=== PATIENT | male | born 1950 | race African-American/Black ===

== ENCOUNTER → 2019-05-25 | Day surgery (SDC) | payer MEDICARE, OTHER ==
[~2019-05-25] MED LIST: AMLO10TA8 PO; ASPI-630 PO; DORZ10DR7 OS; GABA600T7 PO; HYDROmorphone 2 MG/ML VIAL IV PRN; INSU100I13 SQ; IV RINGERS,LACTATED 1000ML 1,000 ML IV SCH; LATA2.5D3 OP; LIDOCAINE 1% PF 2 ML VIAL. ID PRN; LIDOCAINE 2% PF 5 ML VIAL. ONE; LISI-130 PO; MORPHINE SULFATE 2 MG/ML VIAL. IV PRN; ONDANSETRON PF 4 MG/2 ML VIAL. IV PRN; PROCHLORPERAZINE 10 MG/2 ML VIAL. IV PRN; PROPOFOL 20 ML IV ONE; SITA1TBM4 PO; fentaNYL PF VIAL 100 MCG/2 ML VIAL IV PRN
[2019-05-25 09:15] VITALS: BP 123/67
--- NOTE | 2019-05-26 15:07 | PATHOLOGY ---
[facility] Accession Number: [id number] . 01 Material submitted: . cecum - CECAL POLYP . 01 Clinical history: . CRCS . 02 Diagnosis: "Cecal polyp", biopsy: - Tubular adenoma; no high-grade dysplasia. (CLW:[facility]; 05/26/2019) QMS 05/26/2019 0954 Local . 02 Electronically signed: . Ree Caceres MD, Pathologist NPI- [id number] . 01 Gross description: . The specimen is received in formalin, labeled "Alber Barks[place], cecal polyp", is an irregular fragment of aldana soft tissue measuring 0.2 cm in aggregate. Entirely submitted in A1. ([facility]; 05/25/2019) [facility] 05/26/2019 0953 Local . 02 Pathologist provided ICD-10: D12.0 . 02 CPT . 167456 Specimen Comment: A courtesy copy of this report has been sent to Specimen Comment: [phone], . Specimen Comment: Report sent to / DR MAC Performed at: 01 [facility] [address], [place] [id number] MD Aaron Verma MD Phone: [phone] Performed at: 02 [facility] [address], [place] [id number] MD Isaiah Pedraza MD Phone: [phone]
== END ==
LOC: ENDOS 07:29
PROVIDERS: ATTEND Internal Medicine Gastroenterology
DX: Z12.11 Encounter for screening for malignant neoplasm of colon (principal); D12.0 Benign neoplasm of cecum; K57.30 Diverticulosis of large intestine without perforation or abscess without bleeding; K64.0 First degree hemorrhoids; F32.9 Major depressive disorder, single episode, unspecified; E11.39 Type 2 diabetes mellitus with other diabetic ophthalmic complication; H42 Glaucoma in diseases classified elsewhere; E11.22 Type 2 diabetes mellitus with diabetic chronic kidney disease; I12.9 Hypertensive chronic kidney disease with stage 1 through stage 4 chronic kidney disease, or unspecified chronic kidney disease; N18.9 Chronic kidney disease, unspecified; E78.00 Pure hypercholesterolemia, unspecified; G47.30 Sleep apnea, unspecified; F15.90 Other stimulant use, unspecified, uncomplicated; Z79.82 Long term (current) use of aspirin; Z98.890 Other specified postprocedural states; Z86.010 Personal history of colon polyps; Z87.39 Personal history of other diseases of the musculoskeletal system and connective tissue; Z79.84 Long term (current) use of oral hypoglycemic drugs; Z98.49 Cataract extraction status, unspecified eye; Z96.1 Presence of intraocular lens
CPT/HCPCS: 45380; 88305; J2001; J2704

== ENCOUNTER → 2020-01-31 | Outpatient (CLI) | payer MEDICARE, OTHER ==
[2019-05-25 09:15] VITALS: BP 123/67
[~2020-01-31] MED LIST changes: -HYDROmorphone 2 MG/ML VIAL IV PRN; -IV RINGERS,LACTATED 1000ML 1,000 ML IV SCH; -LIDOCAINE 1% PF 2 ML VIAL. ID PRN; -LIDOCAINE 2% PF 5 ML VIAL. ONE; -MORPHINE SULFATE 2 MG/ML VIAL. IV PRN; -ONDANSETRON PF 4 MG/2 ML VIAL. IV PRN; -PROCHLORPERAZINE 10 MG/2 ML VIAL. IV PRN; -PROPOFOL 20 ML IV ONE; -fentaNYL PF VIAL 100 MCG/2 ML VIAL IV PRN
--- NOTE | 2020-01-31 16:06 | KCIC ---
MRI Lumbar Spine without contrast History: Right leg pain and weakness, low back pain, symptoms about 6 months Technique: Multiplanar, multi sequential noncontrast MR imaging was performed of the lumbar spine. Comparison: None Findings: Lumbar vertebral body stature is maintained. There is negligible anterior spondylolisthesis at L4-5. There is moderate to severe degenerative disc disease L5-S1 and to a lesser degree at L4-5, mild to moderate degenerative disc disease at L2-3 and minimally at L3-4. Conus terminates at L1-L2. There is trace variable endplate edema at L3-4 through L5-S1 likely reactive/degenerative in etiology. There is nonspecific edema of the posterior subcutaneous fat of the lower back. There is 2.9 cm T2 hyperintense lesion of the visualized left kidney, statistically most likely a cyst. L1-L2: Spinal canal and neural foramina are adequate. L2-L3: There is disc osteophyte complex and superimposed protrusion about 3 mm AP with associated annular tear. There is mild prominence of posterior epidural fat centrally. There is mild buckling of the ligamentum flavum and mild to moderate facet degenerative change. There is mild lateral recess stenosis bilaterally greater on the right. There is very mild narrowing of the right neural foramen, left neural foramen adequate. L3-L4: There is kmlx-xi-gdbambgw buckling of the ligamentum flavum and facet degenerative change. There is broad protrusion about 3 to 4 mm AP greatest centrally. There is posterior annular tear. There is cdaf-ot-vppepafv narrowing of the far right lateral recess, mild narrowing of the central canal. Neural foramina are overall adequate. L4-L5: There is disc osteophyte complex with superimposed broad posterior bulge about 4 mm AP. There is prominence of posterior epidural fat centrally. There is moderate to severe buckling of the ligamentum flavum and moderate facet hypertrophic change. Combination of findings results in fairly severe attenuation of the thecal sac with near complete effacement of subarachnoid space, lateral recess stenosis bilaterally. Posterior epidural lipomatosis contributes to more central attenuation of the thecal sac. There is moderate right and cywx-ym-eorsqvbh left neural foramina compromise. Bulge is near the undersurfaces of the exiting L4 nerve roots greater on the right extending to the proximal extraforaminal region on the right. L5-S1: There is moderate bilateral facet hypertrophic change and qewu-be-upcjghvo buckling of the ligamentum flavum. There is broad protrusion/mostly contained extrusion somewhat greater in the left lateral recess about 5 to 6 mm AP. There is extent very slightly below the intervertebral disc space greater in the left lateral recess. There is moderate to severe narrowing of the far left lateral recess with contact of the descending left S1 nerve root, minimal narrowing of the far right lateral recess. There is severe narrowing of the left neural foramen in part by disc osteophyte complex in combination with facet degenerative change. There is knnh-bv-uppejvwk narrowing of the right neural foramen. Impression: 1. There is left lateral recess stenosis at L5-S1 by protrusion/extrusion with impingement of the descending left S1 nerve root. There is fairly severe attenuation of the thecal sac at L4-5 with lateral recess stenosis bilaterally, more central attenuation of the thecal sac from posterior epidural lipomatosis. There is also ulcw-bo-yptdursb right lateral recess stenosis at L3-4 in part by protrusion and mild lateral recess stenosis greater on the right at L2-3. 2. There is multilevel lumbar degenerative disc disease greatest L5-S1. 3. There is neural foramina compromise as stated greatest on the left at L5-S1, lesser degree of narrowing bilaterally at L4-5 and on the right at L5-S1. 4. There is multilevel lumbar facet degenerative change, negligible anterior spondylolisthesis L4-5. There is mild lumbar levoscoliosis. 5. Kidneys are not fully evaluated, T2 hyperintense lesion of the visualized inferior left kidney statistically more likely a cyst. Electronically signed by: Serge Ruiz MD (01/31/2020 4:02 PM) [id number]
== END ==
LOC: KCIC MRI 14:48
PROVIDERS: ATTEND Family Medicine
DX: M51.37 Other intervertebral disc degeneration, lumbosacral region (principal); M48.07 Spinal stenosis, lumbosacral region; M51.26 Other intervertebral disc displacement, lumbar region; M25.78 Osteophyte, vertebrae
CPT/HCPCS: 72148

== ENCOUNTER → 2020-03-09 | Outpatient (CLI) | payer MEDICARE, OTHER ==
[2019-05-25 09:15] VITALS: BP 123/67
--- NOTE | 2020-03-09 16:36 | KCIC ---
EXAM: Cervical spine MRI without contrast. HISTORY: Right leg weakness. Unsteady gait. TECHNIQUE: Multiplanar, multisequence magnetic resonance imaging of the cervical spine was performed without contrast. COMPARISON: None. FINDINGS: There is minimal anterolisthesis of C3 on C4 and T1 on T2. There is multilevel endplate remodeling. There is no fracture or suspicious osseous lesion. No cervical spinal cord lesion is seen. There is a small focus of encephalomalacia likely due to chronic infarction within the ciro. At C2-C3, there is a disc bulge and endplate remodeling. There is mild bilateral facet arthropathy. There is no stenosis. At C3-C4, there is a disc bulge and endplate remodeling. There is moderate bilateral facet arthropathy. There is uncovertebral arthropathy. There is mild bilateral foraminal stenosis. At C4-C5, there is a disc bulge and endplate remodeling. There is moderate bilateral facet arthropathy. There is uncovertebral arthropathy. There is mild bilateral foraminal stenosis. At C5-C6, there is a disc bulge and endplate remodeling. There is mild bilateral facet arthropathy. There is uncovertebral arthropathy. There is mild right foraminal stenosis. At C6-C7, there are bilateral posterior lateral disc osteophyte complexes superimposed on a disc bulge. There is mild bilateral facet arthropathy. There is uncovertebral arthropathy. There is moderate right and mild left foraminal stenosis. IMPRESSION: 1. Multilevel degenerative change involving the cervical spine, resulting in foraminal stenosis at the aforementioned levels. No cervical spinal cord lesion is seen. 2. 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 This can be better assessed with a brain MRI. Electronically signed by: Ursula Braun MD (03/09/2020 4:33 PM) [id number]
== END ==
LOC: KCIC MRI 14:22
PROVIDERS: ATTEND Neurological Surgery
DX: M48.02 Spinal stenosis, cervical region (principal); M25.78 Osteophyte, vertebrae; M47.812 Spondylosis without myelopathy or radiculopathy, cervical region
CPT/HCPCS: 72141

== ENCOUNTER → 2020-04-23 | Outpatient (CLI) | payer MEDICARE, OTHER ==
[2019-05-25 09:15] VITALS: BP 123/67
[~2020-04-23] MED LIST changes: +GADOTERATE 7.5 MMOL/15ML VIAL. IVP ONE
--- NOTE | 2020-04-23 13:51 | KCIC ---
MRI of the Brain without and with Contrast 04/23/2020 Clinical History: Right leg weakness. Unsteady gait. Technique: Unenhanced T1-weighted sagittal and axial, T2-weighted axial and coronal and FLAIR, gradient echo and diffusion-weighted axial images of the brain were obtained. After the intravenous administration of 20 cc of Clariscan, enhanced T1-weighted axial, sagittal and coronal images of the brain were obtained. Findings: Comparison is made to the patient's CT scan of the head dated 07/19/2018. Some of the images are degraded by patient motion. There is generalized parenchymal atrophy. Patchy, confluent and multiple focal areas of abnormally increased signal intensity are seen within the periventricular and subcortical white matter of both cerebral hemispheres along with the ciro on the FLAIR and T2-weighted images consistent with areas of extensive small vessel ischemic disease. Old areas of infarction are seen involving both cerebellar hemispheres. These measure 3 to 7 mm in size. A 6 mm old area of lacunar infarction is seen involving the left ciro. Several old areas of lacunar infarction are seen involving the left and right thalamus. These measure 2 to 8 mm in size. Old areas of lacunar infarction are seen within the centrum semiovale bilaterally which measure 3 mm to 1.2 cm in size. A focal oval-shaped area of restricted diffusion is seen involving the periventricular white matter of the left frontal lobe. This measures 6 mm in greatest diameter. This is consistent with an area of acute ischemia/infarction. There is no significant surrounding edema or associated mass effect. No additional acute parenchymal abnormality is seen. No extra-axial fluid collection is noted. No area of abnormal contrast enhancement is seen. Mild mucosal thickening is seen scattered throughout the paranasal sinuses. There are small bilateral mastoid effusions. Normal flow voids are seen within the major vascular structures surrounding the brain parenchyma. Impression: 6 mm area of acute ischemia/infarction is seen involving the white matter of the left frontal lobe. There is no surrounding edema or associated mass effect. This finding was discussed with Dr. Leon. Electronically signed by: Joel Goins MD (04/23/2020 1:48 PM) [id number]
== END | disposition home or self-care (01) ==
LOC: KCIC MRI 10:09
PROVIDERS: ATTEND Neurological Surgery
DX: I63.9 Cerebral infarction, unspecified (principal); G93.6 Cerebral edema; Z86.73 Personal history of transient ischemic attack (TIA), and cerebral infarction without residual deficits
CPT/HCPCS: 70553; 82565; A9575

== ENCOUNTER → 2020-06-18 | Outpatient (CLI) | payer MEDICARE, OTHER ==
[2019-05-25 09:15] VITALS: BP 123/67
[~2020-06-18] MED LIST changes: +AMLO-187 PO; -AMLO10TA8 PO; -GADOTERATE 7.5 MMOL/15ML VIAL. IVP ONE
--- NOTE | 2020-06-18 16:42 | RAD ---
Exam : Carotid Duplex with Grayscale Ultrasound and Spectral and Color Doppler Analysis 06/18/2020 4:38 PM Clinical Indications: Reason: HX OF MULTIPLE STROKES / Spl. Instructions: / History: Comparison study: None available. PQRS Compliance Statement - Stenosis calculations for CT, MR and conventional angiography are based upon measurement of the distal ICA diameter in accordance with the NASCET methodology. Stenosis calculations for carotid ultrasound studies are derived from validated velocity criteria which are known to correlate with the NASCET methodology. Findings: The common, internal and external carotid arteries were examined by grayscale, color and spectral Doppler ultrasound. There is a chronic finding most prominently seen in the bilateral carotid bulbs. No high-grade visual narrowing is identified color Doppler imaging. Flow in the vertebral arteries is antegrade bilaterally. The following are the velocities and ratios in the carotid arteries on both sides: RIGHT ICA PV: 61cm/sec RIGHT CCA PV: 85cm/sec RIGHT ICA ED: 15cm/sec RIGHT IC/CCPV: Less than 2 RIGHT VERTEBRAL: antegrade flow LEFT ICA PV: 75cm/sec LEFT CCA PV: 93cm/sec LEFT ICA ED: 23cm/sec LEFT IC/CCPV: Less than 2 LEFT VERTEBRAL: antegrade flow <50% ICA Stenosis: PSV < 125cm/s (EDV < 40cm/s; SVR < 2.0) 50-69% ICA Stenosis: PSV < 125-229cm/s (EDV 40-99cm/s; SVR 2.0-3.9) >70% ICA Stenosis: PSV > 230cm/s (EDV >100cm/s; SVR >4.0) Impression: Mild atherosclerotic vascular disease predominantly involving the bilateral carotid bulbs with less than 50% stenosis of the bilateral internal carotid arteries by ultrasound criterion Electronically signed by: Jaden Mata MD (06/18/2020 4:39 PM) [id number]
== END ==
LOC: US 14:51
PROVIDERS: ATTEND Nurse Practitioner Family
DX: I63.81 Other cerebral infarction due to occlusion or stenosis of small artery (principal); Z86.73 Personal history of transient ischemic attack (TIA), and cerebral infarction without residual deficits
CPT/HCPCS: 93880

== ENCOUNTER → 2021-03-22 | Outpatient (CLI) | payer MEDICARE, OTHER ==
[2019-05-25 09:15] VITALS: BP 123/67
--- NOTE | 2021-03-22 13:17 | CARD ---
MR#: [id number] Date of Study: 03/22/2021 Ordering Physician: TRAVON WATERMAN, Referring Physician: TRAVON WATERMAN, Tech: Enrike Moser [facility] APPROVED REPORT EXAM: Two-dimensional and M-mode echocardiogram with Doppler and color Doppler. Other Information Quality : AverageHR: 59bpm Rhythm : NSR INDICATION CVA/TIA RISK FACTORS Hypertension 2D DIMENSIONS Left Atrium(2D)5.0 (1.6-4.0cm)IVSd1.7 (0.7-1.1cm) Aortic Root(2D)3.1 (2.0-3.7cm)LVDd4.0 (3.9-5.9cm) LVOT Diameter2.2 (1.8-2.4cm)PWd1.6 (0.7-1.1cm) LVDs2.0 (2.5-4.0cm)FS (%) 50.0 % SV57.7 ml Aortic Valve AoV Peak Boni.100.8cm/sAoV VTI23.9cm AO Peak GR.4.1mmHgLVOT Peak Boni.101.8cm/s AO Mean GR.2mmHgAVA (VMAX)3.76cm2 Mitral Valve MV E Hofsgnfv87.8cm/sMV E Peak Gr.3mmHg MV DECEL [id number] A Laabplwq04.8cm/s MV E Mean Gr.1mmHgE/A Ratio1.1 Pulmonary Valve PV Peak Mgttyicl50.3cm/s Tricuspid Valve TR P. Lmwsdwub180gz/sTR Peak Gr.26mmHg Pulmonary Vein S1 Wdgzrawc79.8cm/sD2 Ovbbhfoc61.3cm/s LEFT VENTRICLE The left ventricle is normal size. There is mild to moderate concentric left ventricular hypertrophy. Additional proximal septal thickening is noted. The left ventricular systolic function is normal an d the ejection fraction is within normal range. LV ejection fraction is 55 to 60%. There is normal LV segmental wall motion. Tissue Doppler imaging reveals abnormal left ventricular diastolic dysfunctio n. No left ventricle thrombus noted on this study. There is no ventricular septal defect visualized. There is no left ventricular aneurysm. There is no mass noted in the left ventricle. RIGHT VENTRICLE The right ventricle is normal size. There is normal right ventricular wall thickness. The right ventr icular systolic function is normal. ATRIA The left atrium is mild to moderately dilated. The right atrium size is normal. The interatrial septu m is intact with no evidence for an atrial septal defect or patent foramen ovale as noted on 2-D or D oppler imaging. AORTIC VALVE The aortic valve is mildly sclerotic. Doppler and Color Flow revealed trace aortic regurgitation. The re is no significant aortic valvular stenosis. There is no aortic valvular vegetation. MITRAL VALVE The mitral valve is normal in structure and function. There is no evidence of mitral valve prolapse. There is no mitral valve stenosis. Doppler and Color-flow revealed mild mitral regurgitation. TRICUSPID VALVE The tricuspid valve is normal in structure and function. Doppler and Color Flow revealed mild tricusp id regurgitation. There is no tricuspid valve prolapse or vegetation. There is no tricuspid valve cici nosis. PULMONIC VALVE The pulmonary valve is normal in structure and function. Doppler and Color Flow revealed no pulmonic valvular regurgitation. There is no pulmonic valvular stenosis. GREAT VESSELS The aortic root is normal in size. The ascending aorta is normal in size. The pulmonary artery is nor mal. The IVC is normal in size and collapses >50% with inspiration. PERICARDIAL EFFUSION There is no pleural effusion. There is no evidence of significant pericardial effusion. Critical Notification Critical Value: No <Conclusion> The left ventricle is normal size. The left ventricular systolic function is normal and the ejection fraction is within normal range. LV ejection fraction is 55 to 60%. There is mild to moderate concentric left ventricular hypertrophy. Additional proximal septal thickening is noted. Doppler and Color Flow revealed trace aortic regurgitation. There is no significant aortic valvular stenosis. Doppler and Color-flow revealed mild mitral regurgitation. Doppler and Color Flow revealed mild tricuspid regurgitation. Signed by : Fahad Valencia MD Electronically Approved : 03/22/2021 13:16:33
== END ==
LOC: ECHO 08:48
PROVIDERS: ATTEND Internal Medicine Cardiovascular Disease
DX: I08.3 Combined rheumatic disorders of mitral, aortic and tricuspid valves (principal); I10 Essential (primary) hypertension; I63.9 Cerebral infarction, unspecified
CPT/HCPCS: 93306

== ENCOUNTER 2021-11-18 12:53 | Inpatient (IN) | payer OTHER, MEDICARE ==
[~2021-11-18] VITALS: Ht 175.3 cm; Wt 98.5 kg
[2021-11-18] VITALS (8 sets, daily range): BP systolic 145–160; BP diastolic 69–95
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
[2021-11-18 13:51] LABS: BACTERIA,URINE 0 /HPF (0-FEW)
[2021-11-18 13:55] LABS: BASO # 0.1 x10^3/uL (0.0-0.2); BASO % 1 % (0-3); EOS % 0 % (0-3); HEMATOCRIT 37.9 % (39.0-53.0); HEMOGLOBIN 12.6 g/dL (13.0-17.5); LYMPH # 1.2 x10^3/uL (1.0-4.8); LYMPH % 16 % (24-48); MEAN CORPUSCULAR HEMOGLOBIN 29 pg (25-35); MEAN CORPUSCULAR HGB CONC 33 g/dL (31-37); MEAN CORPUSCULAR VOLUME 86 fL (79-100); MONO # 0.5 x10^3/uL (0.0-1.1); MONO % 6 % (0-9); NEUT # 5.9 x10^3/uL (1.8-7.7); NEUT % 77 % (31-73); PLATELET COUNT 201 x10^3/uL (140-400); RED BLOOD COUNT 4.39 x10^6/uL (4.30-5.70); RED CELL DISTRIBUTION WIDTH 13.5 % (11.5-14.5); WHITE BLOOD COUNT 7.7 x10^3/uL (4.0-11.0)
--- NOTE | 2021-11-18 13:57 | RAD ---
XR CHEST 1V History: Altered mental status Comparison: 04/17/2019 Technique: Portable AP radiograph of the chest. Findings: The lungs are hypoinflated. There are linear bilateral lower lung opacities. No pleural effusion or p neumothorax. The cardiac silhouette is obscured by low lung volumes. Pulmonary vasculature is crowded . Osseous structures and soft tissues are unremarkable. Impression: 1. Low lung volumes with linear opacities likely atelectasis and bronchovascular crowding. Electronically signed by: Judah Pratt MD (11/18/2021 1:55 PM) [id number]
[2021-11-18 14:00] LABS: CALCIUM 9.5 mg/dL (8.5-10.1); CREATININE 2.5 mg/dL (0.7-1.3); GFR 31.1; POTASSIUM 4.1 mmol/L (3.5-5.1)
[2021-11-18 14:07] LABS: ALBUMIN 3.9 g/dL (3.4-5.0); ALBUMIN/GLOBULIN RATIO 1.1 (1.0-1.7); TOTAL BILIRUBIN 0.4 mg/dL (0.2-1.0); TOTAL PROTEIN 7.4 g/dL (6.4-8.2)
--- NOTE | 2021-11-18 14:12 | RAD ---
CT HEAD INDICATION: Altered mental status COMPARISON: None Available. Exposure: One or more of the following individualized dose reduction techniques were utilized for thi s examination: 1. Automated exposure control 2. Adjustment of the mA and/or kV according to patient size 3. Use of iterative reconstruction technique TECHNIQUE: 5 mm contiguous axial images were obtained from the skull base to the vertex in both bone and soft tissue algorithm. FINDINGS: There is hyperdensity identified along the extra-axial region likely in the subdural region of the le ft frontal lobe measuring 7 mm in thickness likely acute subdural bleed. No mass effect or midline shift. Ventricular size is appropriate. Basal cisterns are patent. No fractures identified.Mcleod-white differentiation is preserved.Globes and orbits are within normal l imits. Paranasal sinuses and mastoid air cells are clear. IMPRESSION: There is hyperdensity identified along the extra-axial region likely in the subdural region of the le ft frontal lobe measuring 7 mm in thickness likely acute subdural bleed. FOR INTERNAL CODING PURPOSES Critical result: Findings discussed with BASHIR CARDOZO DO at 11/18/2021 2:09 PM. RESULT CODE: (C) Electronically signed by: Isma Jarrett MD (11/18/2021 2:09 PM) [id number]
[2021-11-18 14:31] LABS: PROTHROMBIN TIME PATIENT 14.4 SEC (11.7-14.0)
[2021-11-18] MEDS ORDERED: HYDROcodone/APAP 5/325MG 1 TAB TABLET PO PRN (15:15)
[2021-11-18] MEDS ORDERED: IV DEXTROSE 5% 250 ML BAG. IV PRN (15:15)
[2021-11-18] MEDS ORDERED: ONDANSETRON PF 4 MG/2 ML VIAL. IVP PRN (15:15)
[2021-11-18] MEDS ORDERED: 0.9 % SODIUM CHLORIDE 10 ML DISP.SYRIN. IV PRN (15:15)
[2021-11-18] MEDS ORDERED: DEXTROSE 50% 25 GM / 50ML DISP.SYRIN. IV PRN (15:15)
[2021-11-18] MEDS ORDERED: hydrALAZINE 20 MG/ML VIAL. IVP PRN (15:15)
[2021-11-18] MEDS ORDERED: ACETAMINOPHEN 325 MG TABLET. PO PRN (15:15)
[2021-11-18] MEDS ORDERED: ZOLPIDEM 5 MG TABLET. PO PRN (15:15)
[2021-11-18] MEDS ORDERED: MAGNESIUM HYDROXIDE 2,400 MG/30 ML ORAL.SUSP. PO PRN (15:15)
[2021-11-18] MEDS ORDERED: CALCIUM CARBONATE 500 MG TAB.CHEW PO PRN (15:15)
[2021-11-18] MEDS ORDERED: MAG HYDROX/ALUMINUM HYD/SIMETH 30 ML ORAL.SUSP PO PRN (15:15)
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
[2021-11-18] MEDS ORDERED: IV NORMAL SALINE 500ML BAG 500 ML IV ONE (15:45)
[2021-11-18] MEDS ORDERED: FOLI0.8C PO (18:34)
[2021-11-18] MEDS ORDERED: APIX5TAB PO (18:34)
[2021-11-18] MEDS ORDERED: METO-239 PO (18:34)
[2021-11-18] MEDS ORDERED: ATOR40TA59 PO (18:34)
[2021-11-18] MEDS ORDERED: SERT-267 PO (18:34)
[2021-11-18] MEDS ORDERED: METF100010 PO (18:34)
[2021-11-18] MEDS ORDERED: OXYB10TA26 PO (18:34)
[2021-11-18] MEDS ORDERED: TAMS0.4C97 PO (18:34)
[2021-11-18] MEDS ORDERED: MECO10005 PO (18:34)
[2021-11-18] MEDS: INSULIN LISPRO 300 UNITS/3 ML VIAL. SQ SCH (18:43)
--- NOTE | 2021-11-18 18:57 | EKG ---
[facility] [address] [place] [address] Test Date: 2021-11-18 Test Time: 14:12:01 Pat Name: EDOUARD ESTRELLA Department: Room: 112 1 Gender: M Sourcing Specialist: : 1950 Requested By: BASHIR CARDOZO Order Number: [id number] Reading MD: Nitin Short Measurements Intervals [place] Rate: 88 P: 74 LA: 176 QRS: -13 QRSD: 82 T: 22 QT: 334 QTc: 407 Interpretive Statements SINUS RHYTHM LEFTWARD AXIS Electronically Signed On 11-22-2021 13:49:50 CDT by Nitin Short
[2021-11-18] MEDS: TIMOLOL 0.5% OPHTH SOLUTION 5ML BOTTLE. OS SCH (20:43)
[2021-11-18] MEDS: DORZOLAMIDE 2% OPHTH SOLUTION 10ML BOTTLE. OS SCH (20:43)
[2021-11-18] MEDS: GABAPENTIN 300 MG CAPSULE. PO SCH (20:43)
[2021-11-18] MEDS ORDERED: NON FORMULARY ITEM (Dorzolamide Hcl/Timolol Maleat (Dorzolamide-Timolol Eye Drops) 1 DROP) OS SCH (21:00)
[2021-11-18] MEDS ORDERED: INSULIN GLARGINE SYRINGE. SQ SCH ×2 (21:00)
[2021-11-19] VITALS (14 sets, daily range): BP systolic 122–159; BP diastolic 66–86
[2021-11-19 06:37] LABS: CALCIUM 9.1 mg/dL (8.5-10.1); CREATININE 2.2 mg/dL (0.7-1.3); GFR 36.1; POTASSIUM 3.5 mmol/L (3.5-5.1)
[2021-11-19 07:21] LABS: HEMATOCRIT 37.8 % (39.0-53.0); HEMOGLOBIN 12.3 g/dL (13.0-17.5); RED BLOOD COUNT 4.35 x10^6/uL (4.30-5.70); RED CELL DISTRIBUTION WIDTH 13.7 % (11.5-14.5); WHITE BLOOD COUNT 7.1 x10^3/uL (4.0-11.0)
[2021-11-19] MEDS ORDERED: ELECTROLYTE (ICU) PROTOCOL. MC SCH (09:00)
[2021-11-19] MEDS: INSULIN LISPRO 300 UNITS/3 ML VIAL. SQ SCH ×2 (10:18→14:46)
[2021-11-19] MEDS: GABAPENTIN 300 MG CAPSULE. PO SCH (10:19)
[2021-11-19] MEDS: TIMOLOL 0.5% OPHTH SOLUTION 5ML BOTTLE. OS SCH (10:21)
[2021-11-19] MEDS: DORZOLAMIDE 2% OPHTH SOLUTION 10ML BOTTLE. OS SCH (10:21)
--- NOTE | 2021-11-19 11:29 | RAD ---
CT HEAD/BRAIN WO History: Follow-up subdural hemorrhage Comparison: CT head 11/18/2021 Technique: Noncontrast CT imaging was performed of the head. Findings: The previously described left frontal subdural collection is nearly imperceptible on current exam, no w measuring approximately 1-2 mm thickness (axial image 15, coronal image 15). No hydrocephalus or he rniation. No evidence of acute territorial infarction. Hypodensity the periventricular and deep white matter consistent with chronic microvascular ischemic change. Imaged orbits are unremarkable. Imaged paranasal sinuses and mastoid air cells are clear. The scalp a nd calvarium are unremarkable. Impression: 1. Previously described left frontal subdural hemorrhage is now nearly imperceptible measuring appro ximately 2 mm thickness. This may represent near complete resolution versus possible artifactual blee d on the prior exam which is less conspicuous on current exam. ----- Exposure: One or more of the following individualized dose reduction techniques were utilized for thi s examination: 1. Automated exposure control 2. Adjustment of the mA and/or kV according to patient size 3. Use of iterative reconstruction technique. Electronically signed by: Judah Pratt MD (11/19/2021 11:27 AM) [id number]
--- NOTE | 2021-11-19 14:58 | PDOC ---
[employer] PROGRESS NOTE Date of Service DOS: DATE: 11/19/21 TIME: 14:55 Chief Complaint Chief Complaint Acute subdural hematoma MAIRA DM2 with hyperglycemia History of Present Illness History of Present Illness 11/19: Patient evaluated in ICU with at bedside. Had repeat CT head today that showed the previously described left frontal subdural hemorrhage now to be nearly imperceptible, measuring approximately 2 mm thickness. This may represent near complete resolution versus possible artifactual bleed on the prior exam which is less conspicuous on current exam. Patient has been cleared to discharge from neurosurgery. Discussed with and patient, he feels comfortable going home with family care. Greater than 30 minutes spent managing discharge of this patient. Vitals/I&O Vitals/I&O: Vital Signs Date Time Temp Pulse Resp B/P (MAP) Pulse Ox O2 Delivery O2 Flow Rate FiO2 11/19/21 14:00 79 18 153/85 (107) 100 Room Air 11/19/21 08:00 98.9 98.9 I & O 11/18/21 11/18/21 11/19/21 15:00 23:00 07:00 Intake Total 500 ml Output Total 450 ml 600 ml Balance 50 ml -600 ml Physical Exam General: Alert, Cooperative, No acute distress Heart: Regular rate Lungs: Clear Abdomen: Soft, No tenderness Extremities: No clubbing, No cyanosis Skin: No rashes, No breakdown Labs Labs: Laboratory Tests Test 11/18/21 18:29 11/19/21 04:20 11/19/21 08:37 11/19/21 14:30 Glucose (Fingerstick) 219 mg/dL (70-99) 227 mg/dL (70-99) 176 mg/dL (70-99) White Blood Count 7.1 x10^3/uL (4.0-11.0) Red Blood Count 4.35 x10^6/uL (4.30-5.70) Hemoglobin 12.3 g/dL (13.0-17.5) Hematocrit 37.8 % (39.0-53.0) Mean Corpuscular Volume 87 fL (79-100) Mean Corpuscular Hemoglobin 28 pg (25-35) Mean Corpuscular Hemoglobin Concent 33 g/dL (31-37) Red Cell Distribution Width 13.7 % (11.5-14.5) Platelet Count 168 x10^3/uL (140-400) Sodium Level 143 mmol/L (136-145) Potassium Level 3.5 mmol/L (3.5-5.1) Chloride Level 107 mmol/L (98-107) Carbon Dioxide Level 26 mmol/L (21-32) Anion Gap 10 (6-14) Blood Urea Nitrogen 15 mg/dL (8-26) Creatinine 2.2 mg/dL (0.7-1.3) Estimated GFR (Cockcroft-Gault) 36.1 Glucose Level 193 mg/dL (70-99) Calcium Level 9.1 mg/dL (8.5-10.1) Assessment and Plan Assessmemt and Plan Problems Medical Problems: (1) Subdural hemorrhage Status: Acute Comment Review of Relevant I have reviewed the following items cuauhtemoc (where applicable) has been applied. Medications: Current Medications Medications (Trade) Dose Ordered Sig/Danny Route PRN Reason Start Time Stop Time Status Last Admin Dose Admin Insulin Human Lispro (HumaLOG) 0-7 UNITS TIDWMEALS SQ 11/18/21 17:00 11/19/21 14:46 Amlodipine Besylate (Norvasc) 10 mg DAILY PO 11/18/21 16:00 11/19/21 10:19 Gabapentin (Neurontin) 600 mg BID PO 11/18/21 21:00 11/19/21 10:19 Insulin Glargine (Lantus Syringe) 30 unit QHS SQ 11/18/21 21:00 11/18/21 20:43 Sodium Chloride 500 ml @ 120 mls/hr 1X ONCE IV 11/18/21 15:45 11/18/21 19:54 DC 11/18/21 19:00 Dorzolamide HCl (Trusopt) 1 drop BID OS 11/18/21 21:00 11/19/21 10:21 Timolol Maleate (Timoptic 0.5% [facility]) 1 drop BID OS 11/18/21 21:00 11/19/21 10:21 Justifications for Admission Other Justification DAYO MCKEON MD Nov 19, 2021 14:58
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
--- NOTE | 2021-11-19 16:23 | CARD ---
MR#: [id number] Date of Study: 11/19/2021 Ordering Physician: DAYO MCKEON, Referring Physician: Gibran RAZO: Romina Segura [facility] APPROVED REPORT EXAM: Two-dimensional and M-mode echocardiogram with Doppler and color Doppler. Other Information Quality : Technically LimitedHR: 66bpm Rhythm : NSRTechnically limited study due to body habitus. INDICATION Abnormal ECG 2D DIMENSIONS Left Atrium(2D)4.2 (1.6-4.0cm)IVSd2.8 (0.7-1.1cm) Aortic Root(2D)3.2 (2.0-3.7cm)LVDd2.7 (3.9-5.9cm) LVOT Diameter2.6 (1.8-2.4cm)PWd0.9 (0.7-1.1cm) LVDs1.6 (2.5-4.0cm)FS (%) 41.9 % SV20.3 mlLVEF(%)74.9 (>50%) Aortic Valve AoV Peak Boni.114.8cm/Adam Peak GR.5.3mmHg LVOT VTI 15.83cm Mitral Valve MV E Anemkuew84.9cm/sMV DECEL [id number] MV A Eulhdajx50.3cm/sE/A Ratio1.0 MV A [id number] LEFT VENTRICLE The left ventricle is normal size. Proximal septal thickening is noted. The left ventricular systolic function is normal and the ejection fraction is within normal range. Ef 55% There is grossly normal LV segmental wall motion. Tissue Doppler imaging reveals moderate left ventricular diastolic dysfunct ion. RIGHT VENTRICLE The right ventricle is normal size. The right ventricular systolic function is normal. ATRIA The left atrium is moderately dilated. The right atrium size is normal. The interatrial septum is int act with no evidence for an atrial septal defect or patent foramen ovale as noted on 2-D or Doppler i maging. AORTIC VALVE The aortic valve is normal in structure and function. Doppler and Color Flow revealed no significant aortic regurgitation. There is no significant aortic valvular stenosis. MITRAL VALVE The mitral valve is normal in structure and function. There is no evidence of mitral valve prolapse. There is no mitral valve stenosis. Doppler and Color Flow revealed no mitral valve regurgitation note d. TRICUSPID VALVE The tricuspid valve is normal in structure and function. Doppler and Color Flow revealed trace tricus pid regurgitation. There is no tricuspid valve stenosis. PULMONIC VALVE The pulmonic valve is not well visualized. Doppler and Color Flow revealed no pulmonic valvular regur gitation. There is no pulmonic valvular stenosis. GREAT VESSELS The aortic root is normal size. The aortic arch is not well seen. Due to poor image quality, the IVC could not be assessed. PERICARDIAL EFFUSION There is no evidence of significant pericardial effusion. Critical Notification Critical Value: No <Conclusion> The left ventricular systolic function is normal and the ejection fraction is within normal range. EF 55% There is grossly normal LV segmental wall motion. Signed by : Darryn Green, Electronically Approved : 11/19/2021 16:23:27
== END 2021-11-19 17:00 | disposition home or self-care (01) | DRG 86 ==
LOC: ER 12:53 → 1 WEST ICU 14:28
PROVIDERS: ADMIT Family Medicine; ATTEND Family Medicine
DX: S06.5X0A Traumatic subdural hemorrhage without loss of consciousness, initial encounter (principal); N17.9 Acute kidney failure, unspecified; X58.XXXA Exposure to other specified factors, initial encounter; I10 Essential (primary) hypertension; H40.9 Unspecified glaucoma; E11.65 Type 2 diabetes mellitus with hyperglycemia; E78.5 Hyperlipidemia, unspecified; F03.90 Unspecified dementia, unspecified severity, without behavioral disturbance, psychotic disturbance, mood disturbance, and anxiety; Z79.01 Long term (current) use of anticoagulants; Y93.89 Activity, other specified; Y92.89 Other specified places as the place of occurrence of the external cause; Y99.8 Other external cause status; Z79.4 Long term (current) use of insulin; Z79.82 Long term (current) use of aspirin; Z79.899 Other long term (current) drug therapy; Z83.3 Family history of diabetes mellitus
CPT/HCPCS: 36415; 70450; 71045; 80048; 80053; 81001; 82140; 82962; 85025; 85027; 85610; 93005; 93306; J1815; J7040; 99285-25; C8929; G0378